=== PATIENT | male | born 1970 | race African-American/Black ===

== ENCOUNTER 2022-03-17 13:03 | Emergency (ER) | payer SELFPAY ==
[2022-03-17] MEDS ORDERED: Sodium Chloride 0.9% 10 ML Syringe FLUSH PRN (13:52)
== END 2022-03-17 15:42 | disposition home or self-care (01) ==
LOC: JD.ED 13:03
DX: I34.0 Nonrheumatic mitral (valve) insufficiency (principal); F17.200 Nicotine dependence, unspecified, uncomplicated; I10 Essential (primary) hypertension
CPT/HCPCS: 36415; 71045; 80053; 83605; 84484; 85025; 85379; 86140; 93005; 99285; J3490; 93010; 99284

== ENCOUNTER 2022-03-20 17:39 | Emergency (ER) | payer SELFPAY ==
[2022-03-20] MEDS ORDERED: Ondansetron 4 MG Tab.DIS PO ONE (18:55)
[2022-03-20 19:58] LABS: CORONAVIRUS COVID-19 NAA NEGATIVE (NEGATIVE)
[2022-03-20] MEDS ORDERED: Ketorolac 60 MG/2 ML SDV IM ONE (20:17)
== END 2022-03-20 22:00 | disposition home or self-care (01) ==
LOC: JD.ED 17:39
DX: A08.4 Viral intestinal infection, unspecified (principal); G89.29 Other chronic pain; M25.552 Pain in left hip; Z72.0 Tobacco use; Z20.822 Contact with and (suspected) exposure to COVID-19
CPT/HCPCS: 0240U; 36415; 73502; 80053; 85025; 86140; 96372; 99284; A9270; J1885

== ENCOUNTER 2022-08-18 10:01 | Emergency (ER) | payer SELFPAY ==
[2022-08-18] MEDS ORDERED: Fluorescein 1 MG Ophth Strip EYELF ONE (10:20)
[2022-08-18] MEDS ORDERED: Proparacaine 0.5% Ophth Soln 15 ML Bottle EYELF STA (10:21)
== END 2022-08-18 11:00 | disposition home or self-care (01) ==
LOC: JD.ED 10:01
DX: H00.014 Hordeolum externum left upper eyelid (principal); Z79.899 Other long term (current) drug therapy
CPT/HCPCS: 99283

== ENCOUNTER 2023-05-07 04:30 | Emergency (ER) | payer OTHER ==
[2023-05-07 05:12] LABS: BASOPHILS ABSOLUTE AUTO 0.01 K/mm3 (0.01-0.08); BASOPHILS PERCENT AUTO 0.3 % (0.1-1.2); EOSINOPHILS ABSOLUTE AUTO 0.01 K/mm3 (0.04-0.54); EOSINOPHILS PERCENT AUTO 0.3 (0.8-7.0); HEMATOCRIT 48.5 % (40.1-51.0); HEMOGLOBIN 16.1 gm/dl (13.7-17.5); LYMPHOCYTES ABSOLUTE AUTO 1.03 K/mm3 (1.32-3.57); MEAN CORPUSCULAR HEMOGLOBIN 26.6 pg (25.7-32.2); MEAN CORPUSCULAR HGB CONC 33.2 g/dl (32.2-35.5); MEAN CORPUSCULAR VOLUME 80.2 fl (79.0-92.2); MONOCYTES PERCENT AUTO 16.5 % (5.3-12.2); NEUTROPHILS ABSOLUTE AUTO 1.48 K/mm3 (1.78-5.38); NEUTROPHILS PERCENT AUTO 48.9 % (34.0-67.9); PLATELET COUNT,PLT 160 K/mm3 (163-337); RED BLOOD CELL COUNT 6.05 M/mm3 (4.63-6.08); WHITE BLOOD CELL COUNT,WBC 3.03 K/mm3 (4.23-9.07)
[2023-05-07 05:42] LABS: A/G RATIO 0.9 (1-2); ALBUMIN 3.8 g/dl (3.4-5.0); ANION GAP 17.2 (5-15); BILIRUBIN TOTAL 1.2 mg/dL (0.2-1.0); BUN/CREATININE RATIO 8.2 (14-18); CREATININE 1.1 mg/dL (0.7-1.3); EST CRCL DRUG DOSING (CG) 80.19 mL/min; MAGNESIUM 1.6 mg/dL (1.8-2.4); POTASSIUM,K 3.2 mEq/L (3.5-5.1); PROTEIN TOTAL,TP 7.9 g/dl (6.4-8.2)
[2023-05-07 05:58] LABS: INR 1.16; PROTHROMBIN TIME 12.3 SECONDS (9.7-12.0)
[2023-05-07 06:00] LABS: PTT,PARTIAL THROMBOPLSTIN TIME 27.1 SECONDS (21.7-31.4)
[2023-05-07 06:08] LABS: D-DIMER QUANTITATIVE 0.65 mg/L (0.19-0.50)
[2023-05-07 06:12] LABS: CORONAVIRUS COVID-19 NAA NEGATIVE (NEGATIVE); INFLUENZA A NAA NEGATIVE (NEGATIVE); RESPIRATORY SYNCYTIAL VIR NAA NEGATIVE (NEGATIVE)
[2023-05-07] MEDS ORDERED: Potassium Chloride 20 MEQ Tab.ER PO ONE (06:13)
[2023-05-07] MEDS ORDERED: amLODIPine 5 MG Tab PO ONE (06:31)
== END 2023-05-07 06:59 | disposition home or self-care (01) ==
LOC: JD.ED 04:30
DX: R07.89 Other chest pain (principal); I10 Essential (primary) hypertension; E87.6 Hypokalemia; E83.42 Hypomagnesemia; R79.89 Other specified abnormal findings of blood chemistry; J45.909 Unspecified asthma, uncomplicated; E66.9 Obesity, unspecified; F17.210 Nicotine dependence, cigarettes, uncomplicated; Z86.16 Personal history of COVID-19; Z68.30 Body mass index [BMI] 30.0-30.9, adult
CPT/HCPCS: 0241U; 36415; 71046; 80053; 83735; 83880; 84484; 85025; 85379; 85610; 85730; 93005; 99285; A9270; 93010; 99283

== ENCOUNTER 2024-06-19 07:19 | Emergency (ER) | payer MEDICAID ==
[2024-06-19] MEDS: Ketorolac 60 MG/2 ML SDV IM ONE (08:30)
[2024-06-19 08:33] LABS: BASOPHILS PERCENT AUTO 0.8 % (0.0-1.0); EOSINOPHILS ABSOLUTE AUTO 0.1 K/mm3 (0.0-0.4); HEMOGLOBIN 16.5 gm/dl (14.0-18.0); LYMPHOCYTES ABSOLUTE AUTO 0.8 K/mm3 (1.0-4.8); LYMPHOCYTES PERCENT AUTO 32.7 % (24.0-44.0); MEAN CORPUSCULAR HEMOGLOBIN 26.6 pg (28.0-32.0); MEAN CORPUSCULAR HGB CONC 32.4 g/dl (32.0-36.0); MEAN CORPUSCULAR VOLUME 82.3 fl (83.0-99.0); MEAN PLATELET VOLUME 9.3 fl (9.4-12.4); MONOCYTES ABSOLUTE AUTO 0.5 K/mm3 (0.0-0.8); NEUTROPHILS ABSOLUTE AUTO 1.1 K/mm3 (1.8-7.7); NEUTROPHILS PERCENT AUTO 44.5 % (41.0-71.0); PLATELET COUNT,PLT 204 K/mm3 (150-400)
[2024-06-19 08:37] LABS: WHITE BLOOD CELL COUNT,WBC 2.45 K/mm3 (3.9-11.3)
[2024-06-19 09:04] LABS: A/G RATIO 0.8 (1-2); ALBUMIN 3.6 g/dl (3.4-5.0); ANION GAP 13.3 (5-15); BILIRUBIN TOTAL 0.5 mg/dL (0.2-1.0); BUN/CREATININE RATIO 10.9 (14-18); C-REACTIVE PROTEIN 0.08 mg/dL (<0.30); CALCIUM 9.3 mg/dL (8.5-10.1); CREATININE 1.1 mg/dL (0.7-1.3); EST CRCL DRUG DOSING (CG) 79.27 mL/min; POTASSIUM,K 4.3 mEq/L (3.5-5.1)
== END 2024-06-19 10:08 | disposition home or self-care (01) ==
LOC: JD.ED 07:19
DX: M25.552 Pain in left hip (principal); D70.9 Neutropenia, unspecified; I10 Essential (primary) hypertension; E66.9 Obesity, unspecified; Z86.16 Personal history of COVID-19; F17.210 Nicotine dependence, cigarettes, uncomplicated; Z68.30 Body mass index [BMI] 30.0-30.9, adult; Z79.899 Other long term (current) drug therapy
CPT/HCPCS: 36415; 72170; 73552; 80053; 84484; 85025; 86140; 93005; 96372; 99284; J1885; 93010; 99283